=== PATIENT | female | born 1940 | race Caucasian/White ===

== ENCOUNTER 2018-08-06 10:11 | Day surgery (SDC) | payer MEDICARE ==
[~2018-08-06] VITALS: Ht 162.6 cm; Wt 57.8 kg
[2018-08-06 10:46] VITALS: BP 150/58; PULSE 66; TEMP 99
[2018-08-06] MEDS ORDERED: CIPRO 500MG TA500 MG PO (11:06)
[2018-08-06] MEDS ORDERED: NEURONTIN600 MG/TAB PO (11:08)
[2018-08-06] MEDS ORDERED: ZESTRIL 10MG10 MG PO (11:08)
[2018-08-06] MEDS ORDERED: NAMENDA 10MG TA10 MG PO (11:09)
[2018-08-06] MEDS ORDERED: ZOLOFT 50MG50 MG PO (11:11)
[2018-08-06] MEDS ORDERED: DITROPAN 5MG TAB5 MG PO (11:11)
[2018-08-06] MEDS ORDERED: FLONASEALLERGY NS (13:08)
[2018-08-06] MEDS ORDERED: DIFLUCAN150 MG PO (13:08)
[2018-08-06] MEDS ORDERED: TEARS-ARTIFICIA15 ML OP (13:10)
[2018-08-06] MEDS ORDERED: CALCIUM CARBON650 M2 PO (13:11)
[2018-08-06] MEDS ORDERED: BENADRYL25 M2 PO (13:13)
[2018-08-06] MEDS ORDERED: CALCIUM 600/VIT1 CAP PO (13:13)
[2018-08-06] MEDS ORDERED: PRESERVISION1 SGL PO (13:14)
[2018-08-06] MEDS ORDERED: MULTI VITAMINS1 TAB PO (13:15)
[2018-08-06] MEDS ORDERED: LOFIBRA160 MG PO (13:15)
[2018-08-06] MEDS ORDERED: XANAX .25M0.25 MG/TA PO (13:16)
[2018-08-06] MEDS ORDERED: MOBIC15 MG PO (13:16)
[2018-08-06] MEDS ORDERED: ARICEPT10 MG PO (13:17)
[2018-08-06] MEDS ORDERED: ZOCOR 40MG40 MG (13:20)
--- NOTE | 2018-08-06 13:23 | NUR ---
[id number] PATIENT ARRIVED PER STRETCHER FROM [facility] FLUSHED INT AND LR STARTED ORDERED. 11:00C/O LEFT SIDED PAIN AND RECEIVED FENTANYL 25MG 11:10- STATED SHE FELT NO PAIN AT ALL PATIENT HAS CRAWLED OUT OF THE END OF HER BED AND NOT USED CALL LIGHT TO CALL. BUT STANDS AT ROOM DOORWAY TO ASK FOR HELP. UP TO BATHROOM AND VOIDED 300CC CLEAR LIGHT YELLOW URINE. STRAINED URINE- NO STONES NOTED.
--- NOTE | 2018-08-06 13:28 | NUR ---
APPLIED WARM BLANKETS, TURNED DOWN LIGHTS. DOOR FACING DESK OPEN IN VIEW OF NURSE. CALL LIGHT IN REACH. BEDRAILS UP.
--- NOTE | 2018-08-06 13:59 | NUR ---
RECEIVED WARM BLANKET TO HER BACK. PATIENT SLEEPING QUIETLY
--- NOTE | 2018-08-06 14:34 | NUR ---
DR GARCIA INTO TALK WITH PATIENT. PATIENT THEN SCOOTED HERSELF TO END OF BED TO WALK TO BATHROOM TO "CLEAN UP" BEFORE SURGERY. ASSISTED BACK TO BED AND ENCOURAGED HER TO REST TILL SURGERY. PATIENT VERY CHEERFUL AND DENIES ANY PAIN AT THIS TIME.
[2018-08-06 16:05] VITALS: BP 134/59; PULSE 74; TEMP 98.7
--- NOTE | 2018-08-06 16:05 | NUR ---
TO RM 6 PER CART FROM PACU. PATIENT AWAKE AND TALKING TO STAFF. DAUGHTER NOT HERE AT THIS TIME. 02 SAT 96% ON ROOM AIR. DENIES PAIN OR DISCOMFORT. RECEIVED WATER AND TOLERATING WELL.
[2018-08-06 16:20] VITALS: BP 144/52; PULSE 79
--- NOTE | 2018-08-06 16:20 | NUR ---
RECEIVED BLUEBERRY MUFFIN.
[2018-08-06] MEDS ORDERED: PYRIDIUM 100MG100 MG PO (16:26)
[2018-08-06] MEDS ORDERED: NORCO 325 MG-51 TAB PO (16:26)
[2018-08-06 16:33] VITALS: BP 142/64; PULSE 86; TEMP 100.3
--- NOTE | 2018-08-06 16:50 | NUR ---
UP AMBULATED TO BATHROOM WITH ASSIST AND TOLERATED WELL. VOIDED AND AMBULATED BACK TO RM. DAUGHTER AT BEDSIDE AT THIS TIME.
--- NOTE | 2018-08-06 17:10 | NUR ---
DR GARCIA INTO TALK WITH PATIENT AND DAUGHTER. PATIENT MORE CONFUSED THAN BEFORE SURGERY. LAUGHING AND JOKING. DISCONTINUED IV AND INT- CATHETER INTACT COVERED IV SITE WITH COTTON BALL AND COBAN. RECEIVED DISCHARGE INSTRUCTIONS AND VERBALIZED UNDERSTANDING.
--- NOTE | 2018-08-06 17:20 | NUR ---
DISCHARGED PER WC BY NURSING STAFF TO PRIVATE CAR IN CARE OF DAUGHTER
== END 2018-08-06 17:41 | disposition home or self-care (01) ==
LOC: SDCO 10:11
DX: N20.1 Calculus of ureter (principal); I10 Essential (primary) hypertension; K21.9 Gastro-esophageal reflux disease without esophagitis; E78.5 Hyperlipidemia, unspecified; F03.90 Unspecified dementia, unspecified severity, without behavioral disturbance, psychotic disturbance, mood disturbance, and anxiety; F41.9 Anxiety disorder, unspecified; F32.9 Major depressive disorder, single episode, unspecified; M19.90 Unspecified osteoarthritis, unspecified site; Z79.899 Other long term (current) drug therapy; Z88.8 Allergy status to other drugs, medicaments and biological substances
CPT/HCPCS: C1769; C2617; J0690; J1100; J2405; J2704; J3010; J7120; Q9967